=== PATIENT | female | born 1940 | race Two or more races ===

== ENCOUNTER 2024-10-30 10:53 | Emergency (ER) | payer OTHER ==
[~2024-10-30] VITALS: Ht 149.9 cm; Wt 49.9 kg
[2024-10-30] MEDS ORDERED: PREDNISOLONE1 GM (11:24)
[2024-10-30] MEDS ORDERED: TUSSIN100 MG/51 (11:24)
[2024-10-30] MEDS ORDERED: HYDROCODONE/CHLORPHEN P-STIREX 5 ML ML PO ONE (11:45)
[2024-10-30] MEDS ORDERED: LEVALBUTEROL HCL 1.25 MG/3 ML SOLUTION IH SCH (11:45)
[2024-10-30] MEDS ORDERED: AZITHROMYCIN 500 MG TABLET PO ONE (11:45)
[2024-10-30] MEDS ORDERED: METHYLPREDNISOLONE SOD SUCC 125 MG VIAL IV ONE (11:45)
[2024-10-30 13:12] LABS: BASO % 0.5 % (0.1-1.2); EOS # 0.20 (0.04-0.54); EOS % 1.9 % (0.7-7.0); LYMPH # 3.53 (1.18-3.74); LYMPH % 33.4 % (19.3-53.1); MEAN PLATELET VOLUME 9.40 fl (9.4-12.4); MONO # 0.79 (0.24-0.82); MONO % 7.5 % (4.7-12.5); NEUT # 5.97 (1.56-6.13); NEUT % 56.3 % (34.0-71.1); RED CELL DISTRIBUTION WIDTH 12.7 % (11.6-14.4)
[2024-10-30 13:49] LABS: ALT/SGPT 51.0 U/L (12-78); AST/SGOT 43.0 U/L (15-37); BILIRUBIN TOTAL 1.0 mg/dL (0.3-1.2); BUN CREA RATIO 19.0 (7.0-25.0); CREATININE SERUM 1.05 mg/dL (0.55-1.02); GFR 50.05; GLOBULINA 4.0 G/DL (2.4-3.5); GLUCOSE FASTING 109.0 mg/dL (65-100); OSMOLALITY SERUM 286.0 MOSM/KG (275-295)
[2024-10-30 14:09] LABS: COVID-19 AG NEGATIVE (NEGATIVE)
[2024-10-30] MEDS ORDERED: MEDROLPACK PO (14:40)
[2024-10-30] MEDS ORDERED: TUSNEL LIQUID178 ML PO (14:40)
[2024-10-30] MEDS ORDERED: IPRATROPIU0.2 MG/1 M IH (14:40)
[2024-10-30] MEDS ORDERED: ZITHROMAX500 MG PO (14:40)
[2024-10-30 15:06] LABS: ABG PH 7.450 (7.35-7.45); ABG PO2 79.7 mmHg (80-100); BICARBONATE 27.9 mmol/l (23-25)
[2024-10-30 15:07] LABS: o2 21 %
== END 2024-10-30 16:15 | disposition home or self-care (01) ==
LOC: ER 11:26
PROVIDERS: General Practice
DX: J45.909 Unspecified asthma, uncomplicated (principal); R05.9 Cough, unspecified; R06.02 Shortness of breath; Z20.822 Contact with and (suspected) exposure to COVID-19; Z88.0 Allergy status to penicillin